=== PATIENT | female | born 1985 | race Caucasian/White ===

== ENCOUNTER 2016-12-11 06:59 | Emergency (ER) | payer OTHER ==
[~2016-12-11] VITALS: Ht 175.3 cm; Wt 87.7 kg
[~2016-12-11 06:59] MED LIST: HYDR-4003 PO; PREN1TAB69 PO
[2016-12-11 07:00] VITALS: BP 119/79; PULSE 99; RESP 16; O2SAT 100
--- NOTE | 2016-12-11 07:18 | ED.REPORT ---
HPI-NVD Date of Service Dec 11, 2016 ED Provider: Louie Beckman MD Pt is a 31 year old female who is 11 weeks 6 days presenting to the ED complaining of nausea and vomiting onset 4 days ago. Associated symptoms include constipation (last BM 4 days ago) and abd pain. She reports that she is unable to keep anything down including water. Pt states that she did not vomit yesterday, but began again this morning. Denies diarrhea or fever, or current abd pain. She denies previous symptoms, and reports that this is her third . Pt reports a regular , besides that she went in for an ultrasound last week and they were unable to find a heartbeat. The pt's youngest son was sick for 1 day 6 days ago. The pt recently tested negative for influenza. Nursing Notes Stated Complaint: 11 WEEKS /VOMITING Chief Complaint: & Delivery Nursing Notes Reviewed: Yes ([facility], appCREARs not reconciled) Allergies: Coded Allergies: Penicillins (Verified Allergy, Severe, 06/04/13) Scheduled Vit/Fe Fumarate/Fa-Expunged Drug, Do (-Expunged Drug, Do Not Renew!) 1 Each Tablet 1 EACH PO DAILY Scheduled PRN Hydrocodone-Acetaminophen 5-325 mg (Hydrocodone-Acetaminophen 5-325 mg) 1 Each Tablet 1-2 EACH PO Q6 PRN PRN For Pain Metoclopramide (Metoclopramide) 10 Mg Tablet 10 MG PO QID PRN PRN For Nausea Ondansetron ODT (Ondansetron ODT) 8 Mg Tab.rapdis 8 MG PO Q4H PRN PRN For Nausea General Time Seen by MD: 07:16 Chief Complaint Nausea, Vomiting Hx Obtained From: Patient Arrived By: Walk-in Onset Occurred: 4 days ago Symptom Duration: Since onset Location: : No pain Severity: Current: No pain currently Severity: Maximum: No pain Associated with: Reports: Abdominal pain, Constipation, Denies: Fever Related History: Denies: Abdominal surgery, Diabetes mellitus Recent Healthcare: No recent hospitalization, Recent doctor visit Similar Sx Previous: No Past Medical History Past Medical History denies Denies: Asthma, Diabetes mellitus Past Surgical History denies Denies: Appendectomy, Cholecystectomy Smoking History Unknown if Ever Smoker Ambulatory Status Independent Review of Systems Constitutional: Denies: Fever GI: Reports: Abdominal pain, Constipation, Nausea, Vomiting, Denies: Diarrhea Complete sys rev & neg: except as marked. Physical Exam Initial Vital Signs Vital Signs (First) Date Time Temp Pulse Resp B/P Pulse Ox O2 Delivery O2 Flow Rate FiO2 12/11/16 07:00 36.2 99 16 119/79 100 Room Air Initial VS: Reviewed Head / Eyes: Atraumatic, Normocephalic, PERRL Neck: Supple, Non-tender, Full range of motion Respiratory: No respiratory distress Extremities: Vascular intact, Neuro intact, No swelling, No tenderness Skin: Warm, Dry, No cyanosis Neurologic: Alert, Oriented, Nonfocal Psychiatric: Mood/affect normal, Behavior normal, Normal thought content General/Constitutional: Awake, Alert, No acute distress, Well appearing Abdomen: Atraumatic, Soft, Non-tender ENT: Airway patent Mouth: Positive: Mucous membranes dry Interpretation & Diagnostics Interpretation & Diagnostics: PROCEDURE: US OB<14 WKS IMPRESSION: 1. Single live intrauterine gestation with a gestational age of 10 weeks, one day by crown-rump length. 2. 2 small chance-gestational bleeds as above. Dictated by: Nadine Lockhart M.D. on 12/11/2016 at 11:00 Lab Results Interpretation Result Diagram: 12/11/16 0745 12/11/16 0745 Test 12/11/16 07:17 12/11/16 07:45 Urine Color Yellow (YELLOW) Urine Appearance Cloudy (CLEAR,HAZY) Urine pH 6.0 (5.0-8.0) Urine Specific [place] 1.026 (1.003-1.035) Urine Protein Negativemg/dL (NEG,TRACE) Urine Glucose (UA) Negativemg/dL (NEGATIVE) Urine Ketones Negativemg/dL (NEGATIVE) Urine Occult Blood Negative (NEGATIVE) Urine Nitrite Negative (NEGATIVE) Urine Bilirubin Negative (NEGATIVE) Urine Urobilinogen Normalmg/dL (NORMAL) Urine Leukocyte Esterase Negative (NEGATIVE) Urine RBC 0-2/hpf (0-2) Urine WBC 0-5/hpf (0-5) Urine Epithelial Cells Moderate/hpf (NONE-MOD) Urine Crystals Amorphous urates (NONE Urine Bacteria None/hpf (NONE-FEW) Urine Hyaline Casts None/lpf (NONE) Urine Granular Casts None seen (NONE SEEN) Urine Waxy Casts None seen (NONE SEEN) Urine Red Blood Cell Casts None seen (NONE SEEN) Urine White Blood Cell Casts None seen (NONE SEEN) Urine Mucus None seen (None Seen) Urine Trichomonas None seen (NONE SEEN) Urine Yeast None (NONE SEEN) Urinalysis Comment None Urine Culture Reflexed Not indicated White Blood Count 9.6th/mm3 (3.8-10.1) Red Blood Count 4.58mil/mm3 (3.90-5.20) Hemoglobin 13.7g/dL (12.0-15.6) Hematocrit 39.2% (35.0-46.0) Mean Corpuscular Volume 85.6fL (81-100) Mean Corpuscular Hemoglobin 29.9pg (27.0-35.0) Mean Corpuscular Hemoglobin Concent 34.9% (32.0-37.0) Red Cell Distribution Width 12.7% (12.3-15.4) Platelet Count 223bil/L (150-400) Neutrophils (%) (Auto) 87.8% (40-74) Lymphocytes (%) (Auto) 8.6% (14-46) Monocytes (%) (Auto) 3.3% (4-12) Eosinophils (%) (Auto) 0.1% (0-5) Basophils (%) (Auto) 0% (0-3) Sodium Level 139mEq/L (134-144) Potassium Level 3.7mEq/L (3.5-5.2) Chloride Level 102mEq/L (97-108) Carbon Dioxide Level 20mmol/L (18-29) Blood Urea Nitrogen 7mg/dL (6-20) Creatinine 0.50mg/dL (0.57-1.00) Estimat Glomerular Filtration Rate 209mL/min (>59) Glucose Level 93mg/dL (60-99) Calcium Level 9.0mg/dL (8.5-10.1) Total Bilirubin 0.4mg/dL (0.0-1.2) Aspartate Amino Transf (AST/SGOT) 44U/L (0-50) Alanine Aminotransferase (ALT/SGPT) 79U/L (0-32) Alkaline Phosphatase 71U/L (25-150) Total Protein 7.6g/dL (6.4-8.4) Albumin 4.4g/dL (3.4-5.0) Lab Results Interpretation: CBC normal CMP normal Re-Eval/Medical Decision Med Decision/Clinical Course This is a 31-year-old females about 12 weeks presents with abdominal discomfort, nausea and vomiting. She denies with hyperemesis with previous pregnancies, or this one. Context, she denies any vaginal bleeding, she does note that attempted heart rate monitoring were unsuccessful earlier this week which is raised a concern. As I Reglan for nausea, but reports when she got nauseated today it came up as well. She feels dehydrated.. The patient looks a little fatigued, but does not appear toxic. She is not febrile. She is nonhypertensive. Abdomen soft nontender, but initial attempted heart tones were unsuccessful. Blood work was normal. The patient received several rounds of antiemetics initially receiving Reglan, insulin and some ongoing nausea so received ondansetron as well. She did improve, was able take saltines. She may concern , and an abdominal ultrasound was obtained and revealed normal heart activity and no acute abnormality. Patient ultimately proved to be discharged on continued Reglan, and I have written a prescription for some additional when necessary ondansetron to use if needed. Routine precautions are reviewed. Not finding evidence of a serious bacterial illness, there is no evidence of an acute surgical process such as appendicitis, differential still includes hyperemesis versus nonspecific nausea and vomiting. Source of Hx: Old records Re-Evaluation/Progress #1: Time of Eval: 10:09 Patient Status: Condition improved Re-Evaluation/Progress Note: Pt is still nauseated. Ultrasound is in the room. Re-Evaluation/Progress #2: Time of Eval: 11:41 Patient Status: Condition improved Re-Evaluation/Progress Note: Pt is ready to go home. Discussed plan for discharge. Pt understands and agrees. Differential Diagnosis: Positive: Dehydration, , Negative: Appendicitis, Boerhaave syndrome, Bowel obstruction, C. diff colitis, Cholecystitis, Crohn's disease, Diabetes mellitus, Pancreatitis, Peptic ulcer disease Counseled Regarding: Diagnosis, Lab results, Need for follow-up, When/why to return to ED Discharge & Departure Impression: Primary Impression: Vomiting Vomiting type: unspecified Vomiting Intractability: non-intractable Nausea presence: with nausea Qualified Code: R11.2 - Nausea with vomiting, unspecified Additional Impression: Weeks of gestation: 12 weeks Qualified Code: Z3A.12 - 12 weeks gestation of Disposition: Home Discharge Condition All VS Reviewed: Yes Condition: Improved Additional Instructions: 1. Your blood tests in the emergency department were normal. 2. The appears healthy and normal on ultrasound 3. A dangerous cause of the vomiting was not identified. You can have nausea and vomiting of this sort associated with alone, or viral infections that can also cause this-without showing up on testing. 4. Take small frequent sips of fluid. Slowly advance diet as tolerated. 5. Continue your Reglan (metoclopramide) - your next dose can be at 12:30pm 6. You can also take ondansetron 8mg (let dissolve underneath the tongue) up to every 4 hours. (Next dose at 3pm) if needed. 7. Return if new, worsening, or uncontrolled symptoms. Referrals: Roby Rice MD (PCP) Scribe Attestation Portions of this note were transcribed by Maria M Bowles. I, Dr. eBckman personally performed the history, physical exam and medical decision-making; I reviewed and confirmed the accuracy of the information in the transcribed note. Signed by: Kingston Masters, 11/12/2016 and 1147. copies to: Roby Rice MD, Matthew F MD Dec 11, 2016 07:18 MARIA M BOWLES Dec 11, 2016 07:36
[2016-12-11] MEDS ORDERED: Ondansetron 2 mg/mL 2 mL Inj IVPUSH ONE ×3 (07:20→11:55)
[2016-12-11] MEDS ORDERED: Dextrose 5% 0.9% NaCl 1,000 ML IV ONE (07:20)
[2016-12-11] MEDS ORDERED: MetoCLOpramide 5 mg/mL 2 mL Inj IVPUSH ONE (07:35)
[2016-12-11 08:05] LABS: APPEARANCE,URINE CLOUDY (CLEAR,HAZY); COLOR,URINE YELLOW (YELLOW)
[2016-12-11 08:06] LABS: OCCULT BLOOD,URINE NEGATIVE (NEGATIVE); UROBILINOGEN,URINE NORMAL (NORMAL)
[2016-12-11 08:06] LABS: BASOPHILS % (AUTO) 0 % (0-3); EOSINOPHILS % (AUTO) 0.1 % (0-5); MONOCYTES % (AUTO) 3.3 % (4-12); Mean Corpuscular Hemoglobin 29.9 pg (27.0-35.0); Mean Corpuscular Volume 85.6 fL (81-100); NEUTROPHILS % (AUTO) 87.8 % (40-74); Platelet Count 223 bil/L (150-400)
--- NOTE | 2016-12-11 11:03 | DRSVH ---
PROCEDURE: US OB<14 WKS INDICATIONS: ABd pain OUTSIDE/PRIOR DATING DATA: Last menstrual period (LMP): 09/19/16. LMP-based estimated date of delivery (JONE): 06/26/17. First dating scan (date and location): 12/11/16, [facility]. Estimated date of delivery (JONE) from first dating scan: 07/08/17. TECHNIQUE: Real-time scanning was performed of the fetus and maternal pelvic organs, with image documentation. COMPARISON: None. FINDINGS: Embryo: A single live intrauterine gestation is present with a crown-rump length of 3.2 cm for a gest ational age of 10 weeks, one day. There is are 2 small chance-gestational bleeds. One which measures 1. 7 x 1.0 x 0.8 cm and one which measures 2.0 x 0.7 x 0.5 cm. Heart rate is 171 bpm. Measurement variability in dating: +/- 4 weeks by LMP, +/- 7 days by mean sac diameter (use before 6 weeks gestation if crown-rump length not able to be measured), +/- 5 days by crown-rump length (6-12 weeks gestation). Maternal organs: Ovaries have a normal appearance bilaterally.. Limited images through the kidneys demonstrate no hydronephrosis. IMPRESSION: 1. Single live intrauterine gestation with a gestational age of 10 weeks, one day by crown-rump lengt h. 2. 2 small chance-gestational bleeds as above. Dictated by: Nadine Lockhart M.D. on 12/11/2016 at 11:00 Approved by: Nadine Lockhart M.D. on 12/11/2016 at 11:01
[2016-12-11] MEDS ORDERED: ONDA8TAB10 PO (11:54)
[2016-12-11] MEDS ORDERED: METO10TA3 PO (11:54)
[2016-12-11 12:17] VITALS: RESP 16; O2SAT 100
[2016-12-11 12:18] VITALS: BP 90/58
[2016-12-11 12:19] VITALS: BP 104/58; PULSE 90
== END 2016-12-11 12:18 | disposition home or self-care (01) ==
LOC: SED 06:59
DX: O21.0 Mild hyperemesis gravidarum (principal); R10.9 Unspecified abdominal pain; K59.00 Constipation, unspecified; Z3A.12 12 weeks gestation of pregnancy; Z88.0 Allergy status to penicillin
CPT/HCPCS: 36415; 76801; 80053; 81000; 85025; 96361; 96374; 96375; 96376; 99285; J2405; J2765; J7042